=== PATIENT | male | born 1990 | race Two or more races ===

== ENCOUNTER 2016-11-25 22:31 | Emergency (ER) | payer SELFPAY ==
[~2016-11-25] VITALS: Ht 160 cm; Wt 68.0 kg
[2016-11-25 22:51] VITALS: BP 125/67
--- NOTE | 2016-11-26 00:48 | NUR ---
PT TAKEN TO BED 3
--- NOTE | 2016-11-26 01:30 | NUR ---
PT MOVED TO BED 6
--- NOTE | 2016-11-26 01:53 | NUR ---
PATIENT PRESENTS TO ED WITH FACIAL NUMBNESS, LEFT SIDE STARTED 2 DAYS AGO.PT DENIES N/V/D; SKIN IS PINK/WARM/DRY; AAOX4 WITH EVEN AND STEADY GAIT; LUNGS CLEAR BL; HR EVEN AND REGULAR; PT DENIES ANY FEVER, CP, SOB, OR COUGH AT THIS TIME; PATIENT STATES PAIN OF 0/10 AT THIS TIME; VSS; PATIENT POSITIONED FOR COMFORT; HOB ELEVATED; BEDRAILS UP X2; BED DOWN. ER MD MADE AWARE OF PT STATUS.
--- NOTE | 2016-11-26 01:53 | NUR ---
Dr. Eagle evaluating patient at bedside.
[2016-11-26] MEDS ORDERED: KETOROLAC 60 MG/2 ML VIAL IM ONE (02:00)
--- NOTE | 2016-11-26 02:39 | NUR ---
Patient discharged with v/s stable. Written and verbal after care instructions given and explained. Patient alert, oriented and verbalized understanding of instructions. Ambulatory with steady gait. All questions addressed prior to discharge. ID band removed. Patient advised to follow up with PMD. Rx of MOTRIN 800MG AND PREDNISONE 20MG given. Patient educated on indication of medication including possible reaction and side effects. Opportunity to ask questions provided and answered.
[2016-11-26 02:40] VITALS: BP 132/71
== END 2016-11-26 02:39 | disposition home or self-care (01) ==
LOC: MED 22:31
DX: G51.0 Bell's palsy (principal); R07.89 Other chest pain; F17.210 Nicotine dependence, cigarettes, uncomplicated
CPT/HCPCS: 93005; 96372; 99283; J1885